=== PATIENT | male | born 1985 | race Caucasian/White ===

== ENCOUNTER 2018-10-12 21:52 | Inpatient (IN) | payer BC ==
[~2018-10-12] VITALS: Ht 172.7 cm; Wt 90.7 kg
[2018-10-12 22:43] LABS: PLATELET COUNT 328 x10^3mcL (130-400)
[2018-10-12 22:55] LABS: BAND NEUTROPHIL 2 % (0-10); CALCIUM 10.6 mg/dL (8.5-10.1); CARBON DIOXIDE 20.9 mmol/L (21-32); CHLORIDE SERUM 98 mmol/L (98-107); CREATININE SERUM 0.8 mg/dL (0.7-1.3); GFR1 > 60 mL/min; GLUCOSE SERUM 135 mg/dL (74-106); MONOCYTE 1 % (0-7); POTASSIUM SERUM 3.3 mmol/L (3.5-5.1); SEGMENTED NEUTROPHILS 89 % (37-75); SODIUM SERUM 137 mmol/L (136-145)
[2018-10-12 22:56] LABS: PLATELET MORPHOLOGY PLATELETS NORMAL; rbc morphology (normal/abnorm) NORMAL (NORMAL)
[2018-10-12 23:12] LABS: ALKALINE PHOSPHATASE 79 U/L (46-116); ALT/SGPT 19 U/L (16-63); AST/SGOT 20 U/L (15-37)
[2018-10-12 23:16] LABS: CK-MB 0.6 ng/mL (0-3.6)
[2018-10-12 23:55] LABS: UA SPECIFIC GRAVITY >=1.030 (1.005-1.035); microscopic required? YES; urine erythrocyte NEGATIVE (NEGATIVE)
[2018-10-13] VITALS (7 sets, daily range): BP systolic 113–135; BP diastolic 73–84; Ht 172.7 cm; Wt 90.7 kg
[2018-10-13 00:05] LABS: AMPHETAMINE QUAL UR NONE DETECTED (See below)
[2018-10-13 01:06] LABS: T3 TOTAL 1.09 ng/mL
[2018-10-13 01:20] LABS: CHOLESTEROL/HDL RATIO 3.2; MAGNESIUM 2.4 mg/dL (1.8-2.4); PHOSPHOROUS 2.8 mg/dL (2.5-4.9)
[2018-10-13 01:31] LABS: FREE T4 1.44 ng/dL (0.76-1.46); T4(THYROXINE) 8.7 ug/dL (4.7-13.3)
[2018-10-13 06:25] LABS: BASOPHIL % 0.2 % (0-2); PLATELET COUNT 279 x10^3mcL (130-400); RED CELL DISTRIBUTION WIDTH 13.1 % (11.5-14.5)
[2018-10-13 06:46] LABS: CALCIUM 9.2 mg/dL (8.5-10.1); CARBON DIOXIDE 22.2 mmol/L (21-32); CHLORIDE SERUM 105 mmol/L (98-107); CREATININE SERUM 0.7 mg/dL (0.7-1.3); GFR1 > 60 mL/min; GLUCOSE SERUM 98 mg/dL (74-106); MAGNESIUM 2.3 mg/dL (1.8-2.4); PHOSPHOROUS 2.5 mg/dL (2.5-4.9); POTASSIUM SERUM 3.6 mmol/L (3.5-5.1); SODIUM SERUM 142 mmol/L (136-145)
[2018-10-14 06:01] VITALS: BP 130/74
[2018-10-14 06:23] LABS: BASOPHIL % 0.1 % (0-2); PLATELET COUNT 296 x10^3mcL (130-400); RED CELL DISTRIBUTION WIDTH 13.2 % (11.5-14.5)
[2018-10-14 06:43] LABS: CALCIUM 9.9 mg/dL (8.5-10.1); CARBON DIOXIDE 23.9 mmol/L (21-32); CHLORIDE SERUM 105 mmol/L (98-107); CREATININE SERUM 0.7 mg/dL (0.7-1.3); GFR1 > 60 mL/min; GLUCOSE SERUM 102 mg/dL (74-106); POTASSIUM SERUM 3.5 mmol/L (3.5-5.1); SODIUM SERUM 144 mmol/L (136-145)
[2018-10-14 10:10] VITALS: BP 137/86
[2018-10-14 17:15] VITALS: BP 129/81
[2018-10-15 06:04] VITALS: BP 146/81
[2018-10-15 06:52] LABS: BASOPHIL % 0.2 % (0-2); PLATELET COUNT 369 x10^3mcL (130-400); RED CELL DISTRIBUTION WIDTH 13.2 % (11.5-14.5)
[2018-10-15 07:06] LABS: CALCIUM 10.8 mg/dL (8.5-10.1); CARBON DIOXIDE 22.9 mmol/L (21-32); CHLORIDE SERUM 103 mmol/L (98-107); CREATININE SERUM 0.8 mg/dL (0.7-1.3); GFR1 > 60 mL/min; GLUCOSE SERUM 107 mg/dL (74-106); POTASSIUM SERUM 3.1 mmol/L (3.5-5.1); SODIUM SERUM 143 mmol/L (136-145)
[2018-10-15 08:37] VITALS: BP 147/83
[2018-10-15 16:16] VITALS: BP 131/72
[2018-10-15 21:05] VITALS: BP 140/85
[2018-10-16 05:52] VITALS: BP 130/81
[2018-10-16] MEDS ORDERED: LEVAQUIN500 M1 PO (08:06)
[2018-10-16 08:07] LABS: BASOPHIL % 0.1 % (0-2); RED CELL DISTRIBUTION WIDTH 12.8 % (11.5-14.5)
[2018-10-16 08:15] LABS: PLATELET COUNT 422 x10^3mcL (130-400)
[2018-10-16 11:47] VITALS: BP 131/79
== END 2018-10-16 12:45 | disposition home or self-care (01) | DRG 871 ==
LOC: ED 21:52 → DU 10-13 00:14 → MU 10-13 00:14 → DU 10-13 01:29 → MU 10-13 10:39
PROVIDERS: Emergency Medicine; ADMIT Internal Medicine
DX: A41.9 Sepsis, unspecified organism (principal); N17.0 Acute kidney failure with tubular necrosis; J18.9 Pneumonia, unspecified organism; J96.21 Acute and chronic respiratory failure with hypoxia; D68.59 Other primary thrombophilia; E87.6 Hypokalemia; J20.9 Acute bronchitis, unspecified; E83.52 Hypercalcemia; J84.10 Pulmonary fibrosis, unspecified; Z79.899 Other long term (current) drug therapy
CPT/HCPCS: 36600; 83880; 84439; 85378; 87804; 94150; G0378; J0456; J0696; J1644; J7030; J7050; J7620; Q0092; Q9967